=== PATIENT | female | born 1955 | race Caucasian/White ===

== ENCOUNTER 2021-03-15 19:55 | Emergency (ER) | payer SELFPAY ==
[~2021-03-15] VITALS: Ht 165.1 cm; Wt 65.0 kg
[~2021-03-15 19:55] MED LIST: NO HOME MEDS; ZOF4T PO
[2021-03-15 20:45] VITALS: BP 110/69
[2021-03-15] MEDS ORDERED: normal saline 1000ml 1,000 ML IV ONE (21:10)
--- NOTE | 2021-03-15 21:19 | NUR ---
Unable to carry out lab orders due to not being able to locate pt. in lobby or, more specifically, in parking lot area where pt. was told she could wait in her vehicle if she could not tolerate the heat outside
[2021-03-19] MEDS ORDERED: AZIT500T PO ×2 (10:43)
[2021-03-19] MEDS ORDERED: DEXA4TAB67 PO ×2 (10:43)
[2021-03-19] MEDS ORDERED: ONDA4TAB12 PO ×2 (10:43)
[2021-03-19] MEDS ORDERED: ALBU6.7H9 INH ×2 (10:43)
[2021-03-19] MEDS ORDERED: CHOL500050 PO (13:45)
[2021-03-19] MEDS ORDERED: AZIT500T9 PO (13:45)
[2021-03-19] MEDS ORDERED: ALBU8.5H17 INH (13:45)
[2021-03-19] MEDS ORDERED: DEXA4TAB68 PO (13:45)
[2021-03-19] MEDS ORDERED: ESOM20CA PO (13:45)
[2021-03-19] MEDS ORDERED: GABA300C PO (13:45)
[2021-03-19] MEDS ORDERED: CITA20TA28 PO (13:45)
[2021-03-19] MEDS ORDERED: ONDA4TAB6 PO (13:46)
== END 2021-03-15 22:25 | disposition left against medical advice (07) ==
LOC: ER 19:56
DX: R42 Dizziness and giddiness (principal); Z53.21 Procedure and treatment not carried out due to patient leaving prior to being seen by health care provider

== ENCOUNTER 2021-03-18 15:27 | Emergency (ER) | payer MEDICARE, BC ==
[~2021-03-18] VITALS: Ht 165.1 cm; Wt 63.0 kg
[2021-03-18] MEDS ORDERED: dexamethasone sod phosphate 10mg/ml inj PO STA (16:27)
[2021-03-18] MEDS ORDERED: DEXA4TAB67 PO (16:58)
[2021-03-18] MEDS ORDERED: ALBU6.7H9 INH (16:58)
[2021-03-18] MEDS ORDERED: AZIT500T PO (16:58)
[2021-03-18 17:17] VITALS: BP 122/78
--- NOTE | 2021-03-18 17:34 | NUR ---
PT SEEN AND DC'D BY PROVIDER
[2021-03-19] MEDS ORDERED: ONDA4TAB12 PO ×2 (10:43)
[2021-03-19] MEDS ORDERED: DEXA4TAB67 PO ×2 (10:43)
[2021-03-19] MEDS ORDERED: ALBU6.7H9 INH ×2 (10:43)
[2021-03-19] MEDS ORDERED: AZIT500T PO ×2 (10:43)
[2021-03-19] MEDS ORDERED: AZIT500T9 PO (13:45)
[2021-03-19] MEDS ORDERED: ALBU8.5H17 INH (13:45)
[2021-03-19] MEDS ORDERED: DEXA4TAB68 PO (13:45)
[2021-03-19] MEDS ORDERED: GABA300C PO (13:45)
[2021-03-19] MEDS ORDERED: ESOM20CA PO (13:45)
[2021-03-19] MEDS ORDERED: CHOL500050 PO (13:45)
[2021-03-19] MEDS ORDERED: CITA20TA28 PO (13:45)
[2021-03-19] MEDS ORDERED: ONDA4TAB6 PO (13:46)
[2021-03-20] MEDS ORDERED: GABA300C PO (10:11)
[2021-03-20] MEDS ORDERED: CITA20TA28 PO (10:11)
[2021-03-20] MEDS ORDERED: ONDA4TAB6 PO (10:11)
== END 2021-03-18 17:26 | disposition home or self-care (01) ==
LOC: ER 15:28
DX: U07.1 COVID-19 (principal); J12.82 Pneumonia due to coronavirus disease 2019; R06.00 Dyspnea, unspecified; R05 Cough; R50.9 Fever, unspecified; R53.83 Other fatigue; Z79.2 Long term (current) use of antibiotics; Z79.899 Other long term (current) drug therapy
CPT/HCPCS: 71045; 87635; 99284; C9803; J1100

== ENCOUNTER 2021-03-22 11:48 | Emergency (ER) | payer MEDICARE, BC ==
[~2021-03-22] VITALS: Ht 165.1 cm; Wt 57.0 kg
[~2021-03-22 11:48] MED LIST changes: +ALBU8.5H17 INH; +AZIT500T9 PO; +CHOL500050 PO; +CITA20TA28 PO; +DEXA4TAB68 PO; +ESOM20CA PO; +GABA300C PO; -NO HOME MEDS; +ONDA4TAB6 PO; -ZOF4T PO
[2021-03-22 12:49] LABS: BASOPHILS % (AUTO) 0.1 % (0-1); EOSINOPHILS % (AUTO) 0 % (0-6); HEMATOCRIT 38.8 % (35.0-45.0); HEMOGLOBIN 12.6 g/dl (12.0-16.0); LYMPHOCYTES # (AUTO) 0.4 X10'3 (1.1-4.8); LYMPHOCYTES % (AUTO) 2.8 % (21-51); MEAN CORPUSCULAR HEMOGLOBIN 27.5 PG (27.0-31.0); MEAN CORPUSCULAR HGB CONC 32.4 g/dL (33.0-36.5); MEAN CORPUSCULAR VOLUME 85.1 FL (78-98); MEAN PLATELET VOLUME 8.1 FL (7.4-10.4); MONOCYTES # (AUTO) 0.7 X10'3 (0-0.9); NEUTROPHILS # (AUTO) 12.2 X10'3 (1.8-7.7); NEUTROPHILS % (AUTO) 92.1 % (42-75); PLATELET COUNT 384 X10'3 (140-440); RED BLOOD COUNT 4.56 X10'6 (4.20-5.60); RED CELL DISTRIBUTION WIDTH 15.7 % (11.5-14.5); WHITE BLOOD COUNT 13.3 X10'3 (4.5-11.0)
[2021-03-22 13:00] LABS: D-DIMER 0.72 MG/L FEU (0-0.50)
[2021-03-22 13:09] LABS: ALANINE AMINOTRANSFERASE 40 U/L (12-78); ALBUMIN/GLOBULIN RATIO 0.7 (1.1-1.5); ALKALINE PHOSPHATASE 66 IU/L (46-116); ANION GAP 10 (8-16); ASPARTATE AMINO TRANSFERASE 38 U/L (10-37); BILIRUBIN,TOTAL 0.3 MG/DL (0.1-1.0); BLOOD UREA NITROGEN 29 MG/DL (7-18); BUN/CREATININE RATIO 34.5 (6.6-38.0); CALCIUM 8.3 MG/DL (8.5-10.1); CHLORIDE 104 MMOL/L (99-107); CREATININE 0.84 MG/DL (0.40-0.90); GLUCOSE 115 MG/DL (70-104); POTASSIUM 4.4 MMOL/L (3.5-5.1); SODIUM 138 MMOL/L (135-145); TOTAL CARBON DIOXIDE 24.4 MMOL/L (24-32); TOTAL PROTEIN 7.1 G/DL (6.4-8.2); eGFR 68 ML/MIN
[2021-03-22] MEDS ORDERED: OXYGEN NASALCANN (13:45)
[2021-03-22 18:06] VITALS: BP 120/80
== END 2021-03-22 18:01 | disposition home or self-care (01) ==
LOC: ER 11:49
DX: U07.1 COVID-19 (principal); J12.82 Pneumonia due to coronavirus disease 2019; R07.89 Other chest pain; R06.02 Shortness of breath; R05 Cough; R42 Dizziness and giddiness; J44.9 Chronic obstructive pulmonary disease, unspecified; Z79.2 Long term (current) use of antibiotics; Z79.899 Other long term (current) drug therapy
CPT/HCPCS: 36415; 71045; 80053; 84145; 84484; 85025; 85379; 93005; 99285

== ENCOUNTER 2021-03-29 16:43 | Emergency (ER) | payer MEDICARE, BC ==
[~2021-03-29] VITALS: Ht 165.1 cm; Wt 60.0 kg
[~2021-03-29 16:43] MED LIST changes: +OXYGEN NASALCANN
[2021-03-29 16:59] VITALS: BP 111/78
[2021-03-29 18:33] LABS: BASOPHILS % (AUTO) 0.4 % (0-1); EOSINOPHILS % (AUTO) 0.3 % (0-6); HEMATOCRIT 36.4 % (35.0-45.0); HEMOGLOBIN 12.1 g/dl (12.0-16.0); LYMPHOCYTES # (AUTO) 1.3 X10'3 (1.1-4.8); LYMPHOCYTES % (AUTO) 13.8 % (21-51); MEAN CORPUSCULAR HEMOGLOBIN 27.9 PG (27.0-31.0); MEAN CORPUSCULAR HGB CONC 33.3 g/dL (33.0-36.5); MEAN CORPUSCULAR VOLUME 83.6 FL (78-98); MEAN PLATELET VOLUME 7.7 FL (7.4-10.4); MONOCYTES # (AUTO) 0.9 X10'3 (0-0.9); MONOCYTES % (AUTO) 9.7 % (2-12); NEUTROPHILS # (AUTO) 7.3 X10'3 (1.8-7.7); NEUTROPHILS % (AUTO) 75.8 % (42-75); PLATELET COUNT 522 X10'3 (140-440); RED BLOOD COUNT 4.35 X10'6 (4.20-5.60); RED CELL DISTRIBUTION WIDTH 15.8 % (11.5-14.5); WHITE BLOOD COUNT 9.6 X10'3 (4.5-11.0)
[2021-03-29 18:44] LABS: ALANINE AMINOTRANSFERASE 26 U/L (12-78); ALBUMIN 2.6 G/DL (3.4-5.0); ALBUMIN/GLOBULIN RATIO 0.7 (1.1-1.5); ALKALINE PHOSPHATASE 66 IU/L (46-116); ANION GAP 7 (8-16); ASPARTATE AMINO TRANSFERASE 22 U/L (10-37); BILIRUBIN,TOTAL 0.3 MG/DL (0.1-1.0); BLOOD UREA NITROGEN 21 MG/DL (7-18); BUN/CREATININE RATIO 28.4 (6.6-38.0); CALCIUM 7.8 MG/DL (8.5-10.1); CHLORIDE 105 MMOL/L (99-107); CREATININE 0.74 MG/DL (0.40-0.90); GLUCOSE 63 MG/DL (70-104); POTASSIUM 4.1 MMOL/L (3.5-5.1); SODIUM 136 MMOL/L (135-145); TOTAL CARBON DIOXIDE 24.5 MMOL/L (24-32); TOTAL PROTEIN 6.5 G/DL (6.4-8.2); eGFR 79 ML/MIN
[2021-03-29] MEDS ORDERED: iohexol 350MG/ML 100ml bottle IV ONE (19:28)
== END 2021-03-29 21:33 | disposition home or self-care (01) ==
LOC: ER 16:44
DX: U07.1 COVID-19 (principal); J12.82 Pneumonia due to coronavirus disease 2019; J44.9 Chronic obstructive pulmonary disease, unspecified; Z79.2 Long term (current) use of antibiotics; Z79.899 Other long term (current) drug therapy
CPT/HCPCS: 36415; 71045; 71275; 80053; 85025; 99285; Q9967